=== PATIENT | male | born 1960 | race Caucasian/White ===

== ENCOUNTER → 2018-02-27 | Outpatient (CLI) | payer BC ==
[~2018-02-27] MED LIST: ALPRAZOLAM0.5 MG PO; ANDROGEL75 GM TD; CENTRUM SILVER1 EAC1 PO; CLONAZEPAM0.5 MG PO; CREATINE 50005000 MG PO; CYCLOBENZAPRINE10 MG PO; Colace PO; DOCUSATE SODIU100 MG PO; ECOTRIN325 MG PO; ELAVIL25 MG PO; FACTOR PO; FLAX SEED OIL1 EACH PO; FLONASE16 G1 BOTH NARES; GINGER500 MG PO; HYDROCHLOROTHIA50 MG PO; HYZAAR 100-11 TABLET PO; Hydrodiuril,Oretic,E PO; Hyzaar 100-12.5 PO; IMITREX100 MG PO; Imitrex PO; KRILL OIL500 MG PO; L-GLUTAMINE500 MG PO; LIPITOR40 MG PO; LIVER AID PO; LOSARTAN-HCTZ1 EAC1 PO; Levaquin PO; MOBIC15 MG PO; MOTRIN800 MG PO; NEXIUM40 MG PO; ODOR FREE GARL1 EACH PO; OMEPRAZOLE40 M1 PO; ONE DAILY 50 P1 EACH PO; PAXIL CR37.5 MG PO; PAXIL40 MG PO; PERCOCET 7.51 TABLET PO; PROMETHAZINE HC25 M1 PO; Phenergan PO; REQUIP2 MG PO; ROPINIROLE HCL2 MG PO; SKELAXIN800 MG PO; SUMATRIPTAN SUC50 MG PO; SUPER B-50 COM1 EACH PO; TOPROL XL25 MG PO; TURMERIC500 MG PO; Tylenol Regular Stre PO; VITAMIN E400 UNIT PO; Vitamin D, Drisdol PO; XANAX1 MG PO; Xanax PO; [UNRECOGNIZED DRUG - OTHER] PO; [UNRECOGNIZED DRUG - OTHER] PO; [UNRECOGNIZED DRUG - OTHER] PO; [UNRECOGNIZED DRUG - OTHER] PO; [UNRECOGNIZED DRUG - OTHER] PO
== END | disposition home or self-care (01) ==
LOC: CDC 11:53
DX: Z01.810 Encounter for preprocedural cardiovascular examination (principal); R94.31 Abnormal electrocardiogram [ECG] [EKG]
CPT/HCPCS: 93000